=== PATIENT | female | born 2000 | race Caucasian/White ===

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

== ENCOUNTER 2021-08-26 12:25 | Outpatient (CLI) | payer MEDICAID, SELFPAY ==
[2021-08-26] VITALS (17 sets, daily range): BP systolic 134–158; BP diastolic 81–99; PULSE 88–114; RESP 17; BMI 24.2
[2021-08-26 13:58] LABS: Basophils % 0.2 %; Eosinophils % 0.2 %; Hematocrit 32.4 % (37.0-47.0); Hemoglobin 10.5 g/dL (11.5-15.3); Lymphocytes # 1.6 10^3/uL (0.8-4.8); Lymphocytes % 12.5 %; Mean Corpuscular HGB Conc 32.4 g/dL (30.0-36.0); Mean Corpuscular Hemoglobin 27.7 pg (28.0-34.0); Mean Corpuscular Volume 85.5 fl (81-99); Mean Platelet Volume 11.1 fL (7.4-10.4); Monocytes # 0.7 10^3/uL (0.2-0.9); Neutrophils # 10.62 10^3/uL (1.8-7.7); Neutrophils % 81.6 %; Nucleated Red Blood Cells % 0 %; Platelet Count 248 10^3/cmm (130-400); Red Blood Count 3.79 10^6/uL (4.1-5.3); Red Cell Distribution Width 12.6 % (12.1-15.1)
[2021-08-26 14:03] LABS: Add Urine Microscopic? YES; Bilirubin Urine Neg (Negative); Blood Urine Neg (Negative); Glucose Urine UA Norm (Normal); Ketones Urine 1+ (Negative); Leukocyte Esterase Urine Trace (Negative); Nitrate Urine Negative (Negative); Protein Urine Neg (Negative); Specific Gravity, Urine 1.015 (1.005-1.030); Urine Appearance Clear (CLEAR); Urine Color Yellow (Yellow); Urobilinogen Urine Neg (Negative); pH Urine 6 (5-7)
[2021-08-26 14:13] LABS: Add Urine Culture? No; Squamous Epithelial Cell Urine 0-4 /hpf (0-5); WBC Urine 0-4 /hpf (0-5)
[2021-08-26 14:18] LABS: Urine Creatinine 52 mg/dL (28-217); Urine Protein Random 8 mg/dL
[2021-08-26 14:22] LABS: Alanine Aminotransferase 18 U/L (0-33); Albumin Level 3.5 g/dL (3.5-5.2); Alkaline Phosphatase 157 IU/L (35-105); Anion Gap 18.9 (5-19); Aspartate Amino Transferase 18 U/L (0-32); Blood Urea Nitrogen 10 mg/dL (6-20); Calcium 9.7 mg/dL (8.5-10.5); Carbon Dioxide 17 mmol/L (22-29); Chloride 104 mmol/L (98-107); Globulin 2.6 g/dL (1.3-4.6); Glomerular Filtration Rate 201.5 mL/min (90-130); Glucose 75 mg/dL (65-115); Osmolality Calculated 280 mOsm/kg (285-295); Potassium 3.9 mmol/L (3.5-5.1); Sodium 136 mmol/L (136-145); Total Bilirubin 0.2 mg/dL (0.15-1.2); Total Protein 6.1 g/dL (6.6-8.7); Uric Acid 2.5 mg/dL (2.4-5.7)
[2021-08-26 14:24] LABS: UPRO/UCREAT Ratio 0.15 mg/mg CR
== END 2021-08-26 16:22 | disposition home or self-care (01) ==
LOC: OPOB 12:34 → OBGYN 12:35
PROVIDERS: PCP Nurse Practitioner; Visit Provider Family Medicine
DX: O16.9 Unspecified maternal hypertension, unspecified trimester (principal)
CPT/HCPCS: 36415; 59025; 80053; 81001; 82570; 84156; 84550; 85025; 99211

== ENCOUNTER 2021-08-27 07:50 | Outpatient (CLI) | payer MEDICAID, SELFPAY ==
[2021-08-27] VITALS (8 sets, daily range): BP systolic 127–141; BP diastolic 69–100; PULSE 86–106; RESP 17; BMI 25.2
== END 2021-08-27 10:03 | disposition home or self-care (01) ==
LOC: OPOB 07:56 → OBGYN 07:57
PROVIDERS: PCP Nurse Practitioner; Visit Provider Family Medicine
DX: O16.9 Unspecified maternal hypertension, unspecified trimester (principal); Z3A.00 Weeks of gestation of pregnancy not specified; R42 Dizziness and giddiness
CPT/HCPCS: 59025; 99211

== ENCOUNTER 2021-08-27 14:57 | Inpatient (IN) | payer MEDICAID, SELFPAY ==
[2021-08-27] VITALS (24 sets, daily range): BP systolic 118–141; BP diastolic 61–91; PULSE 80–103; RESP 16–17; TEMP 36.4; BMI 25.2
[2021-08-27 15:43] LABS: Basophils % 0.1 %; Eosinophils % 0.2 %; Hematocrit 32.4 % (37.0-47.0); Hemoglobin 10.3 g/dL (11.5-15.3); Lymphocytes # 1.5 10^3/uL (0.8-4.8); Lymphocytes % 10.7 %; Mean Corpuscular HGB Conc 31.8 g/dL (30.0-36.0); Mean Corpuscular Hemoglobin 28.1 pg (28.0-34.0); Mean Corpuscular Volume 88.3 fl (81-99); Mean Platelet Volume 11.3 fL (7.4-10.4); Monocytes # 0.8 10^3/uL (0.2-0.9); Monocytes % 5.8 %; Neutrophils # 11.31 10^3/uL (1.8-7.7); Neutrophils % 82.7 %; Nucleated Red Blood Cells % 0 %; Platelet Count 260 10^3/cmm (130-400); Red Blood Count 3.67 10^6/uL (4.1-5.3); Red Cell Distribution Width 12.9 % (12.1-15.1); White Blood Count 13.7 10^3/uL (4.0-10.0)
[2021-08-27] MEDS: miSOPROStol 100 mcg tablet 25 MCG VAGINAL ×2 (16:17→21:00)
[2021-08-27] MEDS: dextrose 5%-lactated ringers 1,000 ML 125 ML IV (16:56)
[2021-08-27] MEDS: ampicillin 2,000 MG in sodium chloride 0.9% (plus) 50 ML 100 MG IV (17:02)
[2021-08-27 17:18] LABS: Adenovirus Not Detected (NOT DETECT); Chlamydia Pneumoniae Not Detected (NOT DETECT); Coronavirus 229E,HKU1,NL63,OC4 Not Detected (NOT DETECT); Human Metapneumovirus Not Detected (NOT DETECT); Human Rhinovirus/Enterovirus Not Detected (NOT DETECT); Influenza A Not Detected (NOT DETECT); Influenza A H1 Not Detected (NOT DETECT); Influenza A H1-2009 Not Detected (NOT DETECT); Influenza A H3 Not Detected (NOT DETECT); Influenza B Not Detected (NOT DETECT); Mycoplasma Pneumoniae Not Detected (NOT DETECT); Parainfluenza Virus Type 1 Not Detected (NOT DETECT); Parainfluenza Virus Type 2 Not Detected (NOT DETECT); Parainfluenza Virus Type 3 Not Detected (NOT DETECT); Parainfluenza Virus Type 4 Not Detected (NOT DETECT); Respiratory Syncytial Virus A Not Detected (NOT DETECT); Respiratory Syncytial Virus B Not Detected (NOT DETECT); SARS-COV-2 Not Detected (NOT DETECT)
[2021-08-27] MEDS: ampicillin 1,000 MG in sodium chloride 0.9% (plus) 50 ML 100 MG IV (20:58)
[2021-08-27] MEDS: morphine 4 mg/mL SDV 1 mL 8 MG IM (22:30)
[2021-08-27] MEDS: promethazine 25 mg/mL SDV 1 mL IM (22:30)
[2021-08-28] VITALS (175 sets, daily range): BP systolic 111–180; BP diastolic 55–91; PULSE 82–153; RESP 16–20; TEMP 36.4–36.9; O2SAT 86–100
[2021-08-28] MEDS: lactated ringers 1,000 ML 999 ML IV ×3 (00:38→13:09)
[2021-08-28] MEDS: ampicillin 1,000 MG in sodium chloride 0.9% (plus) 50 ML 100 MG IV ×2 (01:03→07:15)
--- NOTE | 2021-08-28 01:40 | ANES.PREANE2 ---
Pre-Anesthetic Assessment Height/Weight: Height 1.65 m Weight 68.946 kg Temp Pulse Resp BP 97.6 F 89 17 144/87 08/27/21 16:18 08/28/21 01:24 08/27/21 22:30 08/28/21 01:24 Preop Diagnosis: labor pain epidural Was Beta Kirk taken within 24 hours: N/A Was Clonidine taken within 24 hours: N/A Social No alcohol and No tobacco Exam alert, oriented x 3, clear to auscultation bilaterally and regular rate & rhythm Airway Submandibular: within normal limits Cervical ROM: within normal limits Mallampati: Class II Dentition: full Pulmonary None reported CV/HEM None reported None reported Hepatic None reported GI Gastroesophageal Reflux Disease (with ) Metabolic None reported Musc/skel None reported Neuropsych Anxiety Anesthetic Plan ASA status: 2 Anesthesia: Regional (specify below) Risk of > 500 ml blood loss (7ml/kg in children): No Medications/Allergies Home Medications Medication Instructions Recorded Confirmed Last Taken Type sertraline 50 mg tablet (Zoloft) 50 mg PO QDAY 30 Days #30 tab 05/05/21 08/27/21 Unknown Rx Allergies Allergy/AdvReac Type Severity Reaction Status Date / Time No Known Allergies Allergy Verified 08/27/21 08:25 Current Medications Generic Name Dose Route Start Last Admin Trade Name Freq PRN Reason Stop Dose Admin Dextrose/Lactated Ringer's 1,000 mls @ 125 mls/hr 08/27/21 15:30 08/28/21 00:38 Dextrose 5%-Lactated Ringers IV Infused .Q8H CAROLA Infusion Ampicillin Sodium 1,000 mg/ 50 mls @ 100 mls/hr 08/27/21 20:30 08/28/21 01:03 Sodium Chloride IV 100 mls/hr Q4H CAROLA Administration Protocol Lactated Ringer's 1,000 mls @ 999 mls/hr 08/28/21 00:39 08/28/21 00:38 Lactated Ringers IV 999 mls/hr .Q1H1M PRN Administration See label comments PFSH Anesthesia Medical History Menorrhagia Situational anxiety Surgical History No pertinent past surgical history Family History Other Diabetes Hypertension Social History Smoking and tobacco status: never smoked Second hand smoke exposure: No Smoking risk assessment/counseling performed?: No Alcohol intake: never Desire information about alcohol rehabilitation?: No Counseling given: No Desire information about substance/drug rehabilitation?: No Counseling given: No Adopted: No Caregiver/support person: No Lives independently: Yes Household members: family Housing: House Marital status: Single Number of children: 0 service: No Current occupational status: student Pets and animals: Yes History of recent travel: No Current gender identity: Female Female Reproductive History Date of last menstrual period: 11/05/19 : 1 Spontaneous abortions: No Data Anesthesia : 08/27/21 15:10 Short CBC 08/27/21 Range/Units 15:10 WBC 13.7 H (4.0-10.0) 10^3/uL Hgb 10.3 L (11.5-15.3) g/dL Hct 32.4 L (37.0-47.0) % MCV 88.3 (81-99) fl Plt Count 260 (130-400) 10^3/cmm Neut % (Auto) 82.7 % Neut # (Auto) 11.31 H (1.8-7.7) 10^3/uL COVID Results 08/27/21 15:10 Coronavirus 229E (PCR) Not detected SARS-CoV-2 (PCR) Not detected Cardiac Studies: No Data to Display
--- NOTE | 2021-08-28 02:08 | P.ANES_ITS ---
Anesthesia Procedures Procedure/Date: 08/28/21 epidural Procedure Narrative: epidural complete, bolus given, epidural pump initiated with SENIOR LEAD DEVELOPER education given, vitals taken during procedure using OBIX system and satisfactory throughout, patient admits to decrease pain, report of procedure to OB RN Epidural: Time Out Performed: Yes Consents Signed: Procedure Consent Consent: requested by attending/covering physician, from patient, risks and benefits reviewed and patient agrees to proceed Lumbar Level: L3-L4 Epidural position: sitting Epidural procedure: sterile prep of area, 1% lidocaine to numb the area (3 mL), 18 g needle, negative for paresthesia passed, neg for paresthesia, test dose given, 1.5% xylocaine 1:200k epi (5 mL), 0.2% Ropivacaine bolus ml (5 mL), placed PCEA, no systemic response, sterile dressing applied, L.U.D. no apparent complications and 0.2% Ropiavacaine @ mls/hr (13 mL/hr)
[2021-08-28] MEDS: dextrose 5%-lactated ringers 1,000 ML 125 ML IV (02:20)
[2021-08-28] MEDS: oxytocin 30 UNIT/500 ML BAG IV (04:15)
--- NOTE | 2021-08-28 07:34 | P.HPUD_ITS ---
Labor & Delivery H&P Update Date of Procedure: August 28, 2021 Date H&P Performed: 08/27/21 Changes to previous documentation: None Admission Diagnosis: 21-year-old 1 at 37 weeks and 2 days. Preop diagnosis: labor pain Planned procedure: Spontaneous vaginal delivery Other information: Yesterday, the patient presented to the hospital due to concerns about an elevated blood pressure. She was found to have blood pressures that were intermittently elevated. They also dropped down below a systolic of 140 as well. She had been in the hospital the night prior and was also noted to have elevated blood pressures initially which slowly trended down below a systolic of 140. I saw my office yesterday and she once again had elevated blood pressures. Given her gestational age of greater than 37 weeks, and having 3 different medical encounters in which she was noted to have elevated blood pressures in all 3, I elected to induce labor. The patient had no other symptoms associated with preeclampsia. Her had otherwise been relatively unremarkable. [facility] type of O- with an antibody screen that was negative. She is GBS positive. Otherwise the remainder of her labs are within normal limits.
--- NOTE | 2021-08-28 10:02 | P.PCNOB_ITS ---
Delivery Note: Date of delivery: August 28, 2021 Pre-delivery diagnoses: 21-year-old 37-week Post-delivery diagnoses: Status post spontaneous vaginal delivery Procedure: Spontaneous vaginal delivery Delivering Physician: Dhaval Freeman Findings: 100 Pre-Delivery Course: The patient presented to the hospital for induction due to gestational hypertension. She was noted to have multiple elevated blood pressures in the office. As result she was brought to the hospital where she was placed on Cytotec, and later placed on Pitocin. She progressed to complete without difficulty. Her was otherwise unremarkable. She had no other signs of preeclampsia. Her blood type was O-. She was GBS positive. Her glucose screen was negative. Rubella status was immune. The remainder of her labs we re within normal limits. Delivery: DELIVERY: The patient progressed to complete without difficulty. She delivered a female with a weight of 6 pounds 1 ounces with Apgars of 7, 9. The baby was delivered from the EVERETT position and placed on the mother's abdomen. The cord was then clamped and cut. There was no nuchal cord. There was no meconium. The placenta and 3 vessel cord were delivered intact shortly thereafter. The perineum and vaginal vault were carefully examined. Minimal lacerations were noted. Both the mother and the baby were in stable condition. Post-Delivery Status: Good A&P Assessment and plan (1) 37 weeks gestation of : Anticipate routine care. Status: Acute (2) Spontaneous vaginal delivery: Status: Acute Coding Level of Care Code Acute Business Programmer for Chg Fwd Diagnoses 37 weeks gestation of Z3A.37 Spontaneous vaginal delivery O80
[2021-08-28] MEDS: benzocaine-menthol 78 gm Canister 1 SPRAY TOPICAL (12:24)
[2021-08-28] MEDS: lanolin oint 7 gm 1 APPLIC TOPICAL (12:24)
--- NOTE | 2021-08-28 12:26 | ANE.PACU2 ---
Inpatient post-anesthesia follow up: Airway intact: Yes Vital signs: Temperature 97.7 F Pulse Rate 120 Respiratory Rate 17 Blood Pressure 144/79 Pulse Oximetry 99 Oxygen Delivery Me thod Room Air Oxygen Flow Rate Fraction of Inspir ed Oxygen Hydration adequate: Yes Nausea and vomiting: No Pain level: 2 Mental status: Baseline
[2021-08-28] MEDS: sertraline 50 mg Tablet PO (13:09)
[2021-08-28 13:53] LABS: Basophils # 0.1 10^3/uL (0.0-0.1); Basophils % 0.2 %; Hematocrit 30.2 % (37.0-47.0); Hemoglobin 9.6 g/dL (11.5-15.3); Lymphocytes # 1.1 10^3/uL (0.8-4.8); Lymphocytes % 3.9 %; Mean Corpuscular HGB Conc 31.8 g/dL (30.0-36.0); Mean Platelet Volume 11.6 fL (7.4-10.4); Monocytes # 1.4 10^3/uL (0.2-0.9); Monocytes % 4.9 %; Neutrophils # 25.82 10^3/uL (1.8-7.7); Neutrophils % 90.4 %; Nucleated Red Blood Cells % 0 %; Platelet Count 255 10^3/cmm (130-400); Red Blood Count 3.43 10^6/uL (4.1-5.3); White Blood Count 28.6 10^3/uL (4.0-10.0)
[2021-08-28] MEDS: ibuprofen 800 mg tablet PO ×2 (15:12→21:01)
[2021-08-28] MEDS: HYDROcodone-acetaminophen 5-325 mg Tablet PO (17:08)
[2021-08-28] MEDS: docusate sodium 100 mg Capsule PO (21:01)
[2021-08-28 22:32] LABS: Hematocrit 24.9 % (37.0-47.0); Hemoglobin 7.9 g/dL (11.5-15.3); Mean Corpuscular HGB Conc 31.7 g/dL (30.0-36.0); Mean Corpuscular Volume 88.3 fl (81-99); Platelet Count 205 10^3/cmm (130-400); Red Blood Count 2.82 10^6/uL (4.1-5.3); Red Cell Distribution Width 12.9 % (12.1-15.1); White Blood Count 21.9 10^3/uL (4.0-10.0)
[2021-08-29 03:54] VITALS: BP 126/80; PULSE 100
[2021-08-29 06:35] LABS: Hematocrit 24.8 % (37.0-47.0); Hemoglobin 7.8 g/dL (11.5-15.3); Mean Corpuscular HGB Conc 31.5 g/dL (30.0-36.0); Mean Corpuscular Hemoglobin 27.9 pg (28.0-34.0); Mean Corpuscular Volume 88.6 fl (81-99); Mean Platelet Volume 11.2 fL (7.4-10.4); Platelet Count 188 10^3/cmm (130-400); Red Cell Distribution Width 13.1 % (12.1-15.1); White Blood Count 19.2 10^3/uL (4.0-10.0)
[2021-08-29] MEDS: ibuprofen 800 mg tablet PO ×2 (10:06→15:16)
[2021-08-29] MEDS: prenatal vitamin Capsule 1 CAP PO (10:06)
[2021-08-29] MEDS: docusate sodium 100 mg Capsule PO (10:06)
[2021-08-29] MEDS: sertraline 50 mg Tablet PO (10:06)
[2021-08-29 10:14] VITALS: BP 139/79; PULSE 106
--- NOTE | 2021-08-29 14:42 | PM.OBGYDC ---
Discharge Providers SHAREPOINT DESIGNER DEVELOPER Date of Admission: 08/27/21 14:57 Date of Discharge: 09/08/21 Attending Provider at Admission: Dhaval Freeman MD Attending Provider at Discharge: Dhaval Freeman MD Primary Care Provider: JO-ANN Bailey Reason for Visit Reason for Visit: Induced Hospital Course Hospital Course The patient presented to the hospital for induction due to gestational hypertension. Her induction was performed with Cytotec Pitocin. She progressed to complete and had an unremarkable delivery of a healthy appearing . Her course was also unremarkable. Information Peripartum Data: Infant Delivery Method: Vaginal Physical Exam Narrative: The patient is alert. She appears comfortable. Her heart has a regular rate and rhythm with no murmurs appreciated. Lungs are clear to auscultation bilaterally. Her fundus is firm and below the umbilicus. Urinary Catheter Management: Lala: Cath Placed During This Visit: yes Reason for Continuing Indwelling Catheter: Required Immobilization for Trauma or Surgery or Anesthesia Urinary Catheter Date of Insertion: 08/28/21 Urinary Catheter Time of Insertion: 02:41 Discharge Data Studies Completed and Pending Pending at discharge Category Date Time Status Antibody Identification Routine Lab 08/27/21 15:10 Results Complete Crossmatch Routine Lab 08/27/21 15:10 Results Retype for Patiets ABO/Rh Routine Lab 08/29/21 13:06 Ordered Rho D Immune Globulin Routine Lab 08/27/21 15:10 Results Type and Screen Routine Lab 08/27/21 15:10 Results Laboratory Results WBC 19.2 10^3/uL (4.0-10.0) H 08/29/21 06:05 RBC 2.80 10^6/uL (4.1-5.3) L 08/29/21 06:05 Hgb 7.8 g/dL (11.5-15.3) L 08/29/21 06:05 Hct 24.8 % (37.0-47.0) L 08/29/21 06:05 MCV 88.6 fl (81-99) 08/29/21 06:05 MCH 27.9 pg (28.0-34.0) L 08/29/21 06:05 MCHC 31.5 g/dL (30.0-36.0) 08/29/21 06:05 RDW 13.1 % (12.1-15.1) 08/29/21 06:05 Plt Count 188 10^3/cmm (130-400) 08/29/21 06:05 MPV 11.2 fL (7.4-10.4) H 08/29/21 06:05 Neut % (Auto) 90.4 % 08/28/21 13:00 Lymph % (Auto) 3.9 % 08/28/21 13:00 [place] % (Auto) 4.9 % 08/28/21 13:00 Eos % (Auto) 0.0 % 08/28/21 13:00 Baso % (Auto) 0.2 % 08/28/21 13:00 Neut # (Auto) 25.82 10^3/uL (1.8-7.7) H 08/28/21 13:00 Lymph # (Auto) 1.1 10^3/uL (0.8-4.8) 08/28/21 13:00 [place] # (Auto) 1.4 10^3/uL (0.2-0.9) H 08/28/21 13:00 Eos # (Auto) 0.0 10^3/uL (0.0-0.8) 08/28/21 13:00 Baso # (Auto) 0.1 10^3/uL (0.0-0.1) 08/28/21 13:00 Nucleated RBC % (auto) 0 % 08/28/21 13:00 Nucleated RBCs # 0.0 /100WBC 08/28/21 13:00 Coronavirus 229E (PCR) Not detected (NOT DETECT) 08/27/21 15:10 SARS-CoV-2 (PCR) Not detected (NOT DETECT) 08/27/21 15:10 Blood Type O Negative 08/27/21 15:10 Rho(D) Type Negative 08/27/21 15:10 Antibody Screen Positive 08/27/21 15:10 Antibody Identification Anti-D 08/27/21 15:10 Screen Negative (Negative) 08/28/21 13:00 Vitals Last Vital Signs Temp 97.5 F L 08/28/21 21:00 Pulse 106 H 08/29/21 10:14 Resp 17 08/28/21 17:30 BP 139/79 08/29/21 10:14 Pulse Ox 98 08/28/21 21:00 Discharge Plan Discharge Patient Disposition: Home Condition: Stable Prescriptions: New ibuprofen 800 mg Tablet 800 mg PO TID Qty: 45 0RF -U 106.5-1 mg Capsule 1 cap PO DAILY Qty: 90 3RF Continued sertraline [Zoloft] 50 mg tablet 50 mg PO QDAY 30 Days Qty: 30 5RF Discharge Orders: Discharge Order (Routine); Ordered 08/29/21 Ordered By: Dhaval Freeman Referrals: Dhaval Freeman MD [Physician] - 10/15/21 11:30 am Discharge Diet: Usual diet Discharge Activity: Limit activity as instructed Patient Instructions: Depression (DC), Bleeding (DC), Preeclampsia and Eclampsia After Delivery (GEN), COVID-19 and (GEN), OB Discharge Report, OB Food/Drug Interaction Guide, OB Care at Home, Opioid Safety, OB Home Care, OB Vaginal Deliveries Discharge Attestations SHAREPOINT DESIGNER DEVELOPER Time Spent in Discharge Care*: less than 30 min Coding Level of Care Code Acute Technology Trainer for Kathg Herbie
[2021-08-29 15:17] VITALS: BP 148/82; PULSE 93
[2021-08-29 15:18] VITALS: BP 148/82; PULSE 93; RESP 16; TEMP 36.3
[2021-08-29 15:55] VITALS: BP 148/82; PULSE 93; RESP 16; TEMP 36.3
== END 2021-08-29 15:55 | disposition home or self-care (01) | DRG 807 ==
PROVIDERS: Admitting Provider Family Medicine; PCP Nurse Practitioner; Visit Provider Family Medicine
DX: O13.4 Gestational [pregnancy-induced] hypertension without significant proteinuria, complicating childbirth (principal); Z37.0 Single live birth; Z3A.37 37 weeks gestation of pregnancy; O99.824 Streptococcus B carrier state complicating childbirth
CPT/HCPCS: 12345; 36415; 36430; 51702; 59409; 85025; 85027; 85460; 86850; 86870; 86900; 87635; 90384; 96372; 96374; J0290; J2270; J2550; J2795

== ENCOUNTER → 2022-06-23 14:17 | Outpatient (BNVA) | payer MEDICAID, SELFPAY | PROVIDERS: PCP Nurse Practitioner; Visit Provider Nurse Practitioner Family | DX: R50.9 Fever, unspecified (principal); J40 Bronchitis, not specified as acute or chronic | CPT/HCPCS: 87400 ==

== ENCOUNTER → 2022-12-09 15:00 | Outpatient (BNVA) | payer MEDICAID, SELFPAY | PROVIDERS: PCP Nurse Practitioner; Visit Provider Nurse Practitioner Family | DX: N39.0 Urinary tract infection, site not specified (principal) | CPT/HCPCS: 81000 ==

== ENCOUNTER → 2023-05-04 16:43 | Outpatient (BNVA) | payer MEDICAID, SELFPAY | PROVIDERS: PCP Nurse Practitioner; Visit Provider Nurse Practitioner Family | DX: R21 Rash and other nonspecific skin eruption (principal) | CPT/HCPCS: 87071; 87880 ==

== ENCOUNTER 2023-05-27 08:24 | Oncology outpatient (recurring) (ONCR) | payer MEDICAID, SELFPAY ==
[2023-05-27 11:38] VITALS: BP 108/63; PULSE 100; RESP 16; TEMP 37.2; O2SAT 95
== END 2023-06-16 23:59 | disposition home or self-care (01) ==
LOC: ONCMED 08:25
PROVIDERS: PCP Nurse Practitioner; Visit Provider Family Medicine
DX: O36.0930 Maternal care for other rhesus isoimmunization, third trimester, not applicable or unspecified (principal); Z67.91 Unspecified blood type, Rh negative
CPT/HCPCS: 36430; 86850; 86900; 90384

== ENCOUNTER 2023-08-16 01:32 | Inpatient (IN) | payer MEDICAID, SELFPAY ==
[2023-08-15 23:50] VITALS: BMI 24.4
[2023-08-15 23:58] VITALS: BP 130/79; PULSE 88
[2023-08-16] VITALS (54 sets, daily range): BP systolic 94–149; BP diastolic 56–86; PULSE 76–117; RESP 16; TEMP 36.2–37.6; O2SAT 95–100
[2023-08-16] MEDS: lactated ringers 1,000 ML 999 ML IV ×2 (00:49→01:50)
[2023-08-16 00:54] LABS: Basophils % 0.2 %; Eosinophils # 0.1 10^3/uL (0.0-0.8); Eosinophils % 0.4 %; Hematocrit 32.8 % (36-47); Lymphocytes # 2.8 10^3/uL (0.8-4.8); Mean Corpuscular HGB Conc 33.2 g/dL (30-55); Mean Corpuscular Hemoglobin 27.9 pg (27-33); Mean Corpuscular Volume 84.1 fl (85-98); Mean Platelet Volume 10.8 fL (7.4-10.4); Monocytes # 0.8 10^3/uL (0.2-0.9); Monocytes % 5.8 %; Neutrophils # 10.18 10^3/uL (1.8-7.7); Neutrophils % 73.1 %; Nucleated Red Blood Cells % 0 %; Platelet Count 217 10^3/cmm (157-399); Red Cell Distribution Width 13.1 % (12.1-15.1); White Blood Count 13.93 10^3/uL (3.29-11.43)
--- NOTE | 2023-08-16 02:11 | P.ANESASSM_ITS ---
Pre-Anesthetic Assessment Height/Weight: Height 1.65 m Weight 66.678 kg Temp Pulse BP Pulse Ox O2 Del Method 97.2 F L 100 132/68 98 Room Air 08/16/23 00:18 08/16/23 02:08 08/16/23 02:08 08/16/23 02:08 08/16/23 01:18 Preop Diagnosis: Labor pain CITLALY Was Beta Kirk taken within 24 hours: N/A Was Clonidine taken within 24 hours: N/A Social No alcohol and No tobacco Exam alert, oriented x 3, clear to auscultation bilaterally and regular rate & rhythm Airway Submandibular: within normal limits Cervical ROM: within normal limits Mallampati: Class II Dentition: full History/ROS No significant history except as noted and No significant complaints Pulmonary None reported CV/HEM None reported None reported Hepatic None reported GI None reported Metabolic None reported Musc/skel None reported Neuropsych None reported Anesthetic Plan ASA status: 2 Anesthesia: Anesthesia Evaluation and Regional (specify below) Other: CITLALY Risk of > 500 ml blood loss (7ml/kg in children): No Medications/Allergies Home Medications Medication Instructions Recorded Confirmed Last Taken Type ibuprofen 800 mg tablet 800 mg PO TID #45 tabs 08/29/21 05/04/23 Unknown Rx multivitamin no.51-ferrous 1 cap PO DAILY #90 caps 08/29/21 05/04/23 Unknown Rx fumarate 106.5 mg-folic acid 1 mg capsule (-U) sertraline 50 mg tablet (Zoloft) 50 mg PO QDAY 30 days #30 tabs 11/01/22 05/04/23 Unknown Rx fluconazole 150 mg tablet 150 mg PO Q3D 2 doses #2 tabs 12/09/22 05/04/23 Unknown Rx (Diflucan) nitrofurantoin 100 mg PO BID #10 caps 12/09/22 05/04/23 Unknown Rx monohydrate/macrocrystals 100 mg capsule (Macrobid) Allergies Allergy/AdvReac Type Severity Reaction Status Date / Time No Known Allergies Allergy Verified 05/04/23 16:11 Current Medications Generic Name Dose Route Start Last Admin Trade Name Freq PRN Reason Stop Dose Admin Lactated Ringer's 1,000 mls @ 999 mls/hr 08/16/23 00:11 08/16/23 01:50 Lactated Ringers IV 999 mls/hr .Q1H1M PRN Administration See label comments PFSH Anesthesia Medical History Menorrhagia Situational anxiety Surgical History No pertinent past surgical history Family History Other Diabetes Hypertension Social History Smoking and tobacco/nicotine status: never used tobacco/nicotine Second hand smoke exposure: No Alcohol intake: never Substance/Drug Use: never Adopted: No Caregiver/support person: No Lives independently: Yes Household members: family Housing: House Marital status: Single Number of children: 0 service: No Current occupational status: student Pets and animals: Yes Do you think of yourself as: Straight/Heterosexual Current gender identity: Female Female Reproductive History : 2 Spontaneous abortions: No Data Anesthesia 08/16/23 00:39 Short CBC 08/16/23 Range/Units 00:39 WBC 13.93 H (3.29-11.43) 10^3/uL Hgb 10.90 L (11.27-16.99) g/dL Hct 32.8 L (36-47) % MCV 84.1 L (85-98) fl Plt Count 217 (157-399) 10^3/cmm Neut % (Auto) 73.1 % Neut # (Auto) 10.18 H (1.8-7.7) 10^3/uL Cardiac Studies: 2 No Data to Display
[2023-08-16] MEDS: ROPivacaine syringe 100 MG/50 ML SYRINGE 10 MG EPIDURAL (02:15)
--- NOTE | 2023-08-16 02:15 | ANES.PROC ---
Anesthesia Procedures Procedure/Date: 08/16/23 Epidural: Time Out Performed: Yes Consents Signed: Procedure Consent Consent: requested by attending/covering physician, from patient, risks and benefits reviewed and patient agrees to proceed Lumbar Level: L3-L4 Epidural position: sitting Epidural procedure: sterile prep of area, 1% lidocaine to numb the area, 18 g needle, neg for paresthesia, test dose given, 1.5% xylocaine 1:200k epi, 0.2% Ropivacaine bolus ml (4cc and Fentanyl 100 mcg), no systemic response, sterile dressing applied, L.U.D. no apparent complications and 0.2% Ropiavacaine @ mls/hr (10cc/hour. Pt tolerated well)
[2023-08-16] MEDS: dextrose 5%-lactated ringers 1,000 ML 125 ML IV (03:05)
--- NOTE | 2023-08-16 05:04 | PM.OPHPUD ---
Labor & Delivery H&P Update Date of Procedure: August 16, 2023 Date H&P Performed: 08/15/23 Changes to previous documentation: The patient arrived at 6 cm dilated with active contractions Admission Diagnosis: 23-year-old 2 para 1-0-0-1 at 37 weeks estimated stational age presenting in active labor Preop diagnosis: Labor pain Planned procedure: Spontaneous vaginal delivery Other information: The patient has had an unremarkable . Her due date was based on a last menstrual period. Her lab work was unremarkable. Her blood type was O-. She received her RhoGAM shot. Her antibody screen was negative. Her rubella status is immune. Her Pap test was within normal limits. She passed her glucose screen. She was GBS negative. The remainder of her infectious disease profile was within normal limits. There were no concerns throughout her . Related Problem List Diagnoses (1) 37 weeks gestation of : A&P Assessment and plan (1) 37 weeks gestation of : We anticipate a routine labor and delivery process. Depending on the baby's blood type, she will receive RhoGAM. Status: Acute
--- NOTE | 2023-08-16 05:17 | PM.DELIVERY ---
Delivery Note: Date of delivery: August 16, 2023 Pre-delivery diagnoses: 23-year-old 2 para 1-0-0-1 at 37 weeks estimated gestational age presenting in active labor Post-delivery diagnoses: Status post spontaneous vaginal delivery Procedure: Spontaneous vaginal delivery Delivering Physician: Dhaval Freeman Estimated blood loss (mL): 50 Pre-Delivery Course: The patient presented to the hospital complaining of contractions and leaking fluid. She was noted to be 6 cm dilated. An epidural was placed. She then progressed to complete without difficulty. Delivery: DELIVERY: The patient progressed to complete without difficulty. She delivered a male with a weight of 6 pounds 1 ounces with Apgars of 9, 9. The baby was delivered from the RICHI position and placed on the mother's abdomen. The cord was then clamped and cut. There was no nuchal cord. There was no meconium. The placenta and 3 vessel cord were delivered intact shortly thereafter. The perineum and vaginal vault were carefully examined. A superficial posterior midline vaginal laceration was noted which was not bleeding and did not require repair. Both the mother and the baby were in stable condition. Post-Delivery Status: Good A&P Assessment and plan (1) 37 weeks gestation of : I anticipate routine care. (2) Spontaneous vaginal delivery: Coding Level of Care Code Acute Code for Chg Fwd Diagnoses 37 weeks gestation of Z3A.37 Spontaneous vaginal delivery O80
[2023-08-16] MEDS: prenatal vitamin Capsule 1 CAP PO (08:52)
[2023-08-16] MEDS: ibuprofen 800 mg tablet PO ×3 (08:52→19:25)
[2023-08-16] MEDS: docusate sodium 100 mg Capsule PO ×2 (08:53→19:25)
[2023-08-16 19:59] LABS: Hematocrit 32.7 % (36-47); Mean Corpuscular HGB Conc 32.1 g/dL (30-55); Mean Corpuscular Hemoglobin 27.6 pg (27-33); Mean Corpuscular Volume 86.1 fl (85-98); Mean Platelet Volume 11.1 fL (7.4-10.4); Platelet Count 208 10^3/cmm (157-399); Red Cell Distribution Width 13.2 % (12.1-15.1); White Blood Count 13.99 10^3/uL (3.29-11.43)
--- NOTE | 2023-08-16 21:05 | PM.OBGYDC ---
Discharge Providers VULCANIZING MACHINE OPERATOR Date of Admission: 08/16/23 01:32 Date of Discharge: 08/22/23 Attending Provider at Admission: Dhaval Freeman MD Attending Provider at Discharge: Dhaval Freeman MD Primary Care Provider: JO-ANN Bailey Diagnoses at Discharge Discharge Diagnosis (1) 37 weeks gestation of : Status: Resolved (2) Spontaneous vaginal delivery: Status: Resolved Reason for Visit Reason for Visit: contractions, possible [facility] Hospital Course Hospital Course The patient presented to the hospital in active labor. An epidural was placed. She progressed to complete without difficulty. She had an unremarkable delivery of a healthy appearing male infant. She only had superficial vaginal wall tears. Her bleeding was within normal limits. Her course was also unremarkable. Her bleeding was within normal limits. She breast-fed well. Her pain was well-controlled. Physical Exam Narrative: The patient is alert. She appears comfortable. Her heart has a regular rate and rhythm with no murmurs appreciated. Lungs are clear to auscultation bilaterally. Her fundus is firm and below the umbilicus. Urinary Catheter Management: Lala: Cath Placed During This Visit: yes, but has since been removed by the nurse Reason for Continuing Indwelling Catheter: Decision to DC Catheter Urinary Catheter Date of Insertion: 08/16/23 Urinary Catheter Time of Insertion: 03:03 Date Urinary Catheter Removed: 08/16/23 Time Urinary Catheter Discontinued: 04:46 Discharge Data Studies Completed and Pending Pending at discharge Category Date Time Status Complete Crossmatch Routine Lab 08/16/23 00:39 Results Rho D Immune Globulin Routine Lab 08/16/23 00:39 Results Type and Screen Routine Lab 08/16/23 00:39 Results Laboratory Results WBC 13.99 10^3/uL (3.29-11.43) H 08/16/23 19:43 RBC 3.80 10^6/uL (3.85-5.65) L 08/16/23 19:43 Hgb 10.50 g/dL (11.27-16.99) L 08/16/23 19:43 Hct 32.7 % (36-47) L 08/16/23 19:43 MCV 86.1 fl (85-98) 08/16/23 19:43 MCH 27.6 pg (27-33) 08/16/23 19:43 MCHC 32.1 g/dL (30-55) 08/16/23 19:43 RDW 13.2 % (12.1-15.1) 08/16/23 19:43 Plt Count 208 10^3/cmm (157-399) 08/16/23 19:43 MPV 11.1 fL (7.4-10.4) H 08/16/23 19:43 Neut % (Auto) 73.1 % 08/16/23 00:39 Lymph % (Auto) 20.0 % 08/16/23 00:39 [place] % (Auto) 5.8 % 08/16/23 00:39 Eos % (Auto) 0.4 % 08/16/23 00:39 Baso % (Auto) 0.2 % 08/16/23 00:39 Neut # (Auto) 10.18 10^3/uL (1.8-7.7) H 08/16/23 00:39 Lymph # (Auto) 2.8 10^3/uL (0.8-4.8) 08/16/23 00:39 [place] # (Auto) 0.8 10^3/uL (0.2-0.9) 08/16/23 00:39 Eos # (Auto) 0.1 10^3/uL (0.0-0.8) 08/16/23 00:39 Baso # (Auto) 0.0 10^3/uL (0.0-0.1) 08/16/23 00:39 Nucleated RBC % (auto) 0 % 08/16/23 00:39 Nucleated RBCs # 0.0 /100WBC 08/16/23 00:39 Blood Type O Negative 08/16/23 00:39 Rho(D) Type Negative 08/16/23 00:39 Antibody Screen Negative 08/16/23 00:39 Screen Negative (Negative) 08/16/23 19:43 Vitals Last Vital Signs Temp 99.7 F H 08/16/23 15:36 Pulse 76 08/16/23 15:36 BP 119/72 08/16/23 15:36 Pulse Ox 97 08/16/23 15:36 O2 Del Method Room Air 08/16/23 08:45 Results Labs OB ([facility]): Obstetrics US 06/06/23 Blood Type O Negative 08/16/23 Antibody Screen Negative 08/16/23 Hct 32.7 % (36-47) L 08/16/23 Hgb 10.50 g/dL (11.27-16.99) L 08/16/23 Rho(D) Type Negative 08/16/23 Plt Count 208 10^3/cmm (157-399) 08/16/23 Uric Acid 2.5 mg/dL (2.4-5.7) 08/26/21 Discharge Plan Discharge Patient Disposition: Home Condition: Stable Prescriptions: New ibuprofen 800 mg Tablet 800 mg PO TID Qty: 45 0RF Continued sertraline [Zoloft] 50 mg tablet 50 mg PO QDAY 30 Days Qty: 30 5RF -U 106.5-1 mg Capsule 1 cap PO DAILY Qty: 90 3RF Discontinued fluconazole [Diflucan] 150 mg tablet 150 mg PO Q3D Qty: 2 0RF Rx Instructions: may repeat second dose 72 hrs after first dose if symptoms persist nitrofurantoin monohyd/m-cryst [Macrobid] 100 mg capsule 100 mg PO BID Qty: 10 0RF Rx Instructions: must administer with a meal/food ibuprofen 800 mg Tablet 800 mg PO TID Qty: 45 0RF Discharge Orders: Discharge Order (Routine); Ordered 08/17/23 Ordered By: Dhaval Freeman Referrals: Michael Jacques MD [Physician] - 09/15/23 1:30 pm (for laparoscopic tubal) Dhaval Freeman MD [Physician] - 09/22/23 1:20 pm Discharge Diet: Usual diet Discharge Activity: Limit activity as instructed Patient Instructions: Depression (DC), Perineal Care (DC), Expression, Collection and Storage of Breast Milk (DC), and Nipple Soreness (DC), and Breast Engorgement (DC), and Plugged Ducts (DC), How to Increase Your Milk Supply (DC), and Your Diet (DC), Bleeding (DC), Tubal Ligation (DC), OB Care at Home, Opioid Safety, Abnormal Bleeding Activity Restrictions/Additional Instructions: Discharge Attestations VULCANIZING MACHINE OPERATOR Time Spent in Discharge Care*: less than 30 min Coding Level of Care Code Acute Code for Chg Fwd Diagnoses 37 weeks gestation of Z3A.37 Spontaneous vaginal delivery O80
[2023-08-16] MEDS: acetaminophen 325 mg Tablet 650 MG PO (23:39)
[2023-08-17] MEDS: HYDROcodone-acetaminophen 5-325 mg Tablet PO (02:22)
[2023-08-17 04:30] VITALS: BP 121/73; PULSE 78; RESP 16; TEMP 36.5; O2SAT 100
--- NOTE | 2023-08-17 08:00 | ANE.PACU2 ---
Inpatient post-anesthesia follow up: Airway intact: Yes Vital signs: Temperature 97.9 F Pulse Rate 86 Respiratory Rate 16 Blood Pressure 130/72 Pulse Oximetry 98 Oxygen Delivery Me thod Room Air Oxygen Flow Rate Fraction of Inspir ed Oxygen Hydration adequate: Yes Nausea and vomiting: No Pain level: 1 Mental status: Baseline Epidural Start/End: Epidural Start Date: 08/16/23 Epidural Start Time: 02:00 Epidural End Date: 08/16/23 Epidural End Time: 05:17
[2023-08-17] MEDS: ibuprofen 800 mg tablet PO (08:12)
[2023-08-17] MEDS: prenatal vitamin Capsule 1 CAP PO (08:12)
[2023-08-17] MEDS: docusate sodium 100 mg Capsule PO (08:12)
[2023-08-17 10:20] VITALS: BP 130/72; PULSE 86; RESP 16; TEMP 36.6; O2SAT 98
== END 2023-08-17 10:20 | disposition home or self-care (01) | DRG 807 ==
LOC: OPOB 01:32 → OBGYN 01:32
PROVIDERS: Admitting Provider Family Medicine; PCP Nurse Practitioner; Visit Provider Family Medicine
DX: O80 Encounter for full-term uncomplicated delivery (principal); Z37.0 Single live birth; Z3A.37 37 weeks gestation of pregnancy
CPT/HCPCS: 36415; 51702; 59025; 83986; 85025; 85027; 85460; 86850; 86900; 90384; 96374; 98960; 99211; J2795; J3010; J7120; J7121

== ENCOUNTER 2023-12-13 10:04 | Day surgery (SDC) | payer MEDICAID, SELFPAY ==
--- NOTE | 2023-12-05 08:24 | P.ANESASSM_ITS ---
Pre-Anesthetic Assessment Height/Weight: Height 1.65 m Operation Date: 12/13/23 11:45 Proposed Procedures p Laparoscopic Salpingectomy 61871, Z30.2(Bilateral) - Michael Jacques MD Familial anesthetic complications: none Was Beta Kirk taken within 24 hours: N/A Was Clonidine taken within 24 hours: N/A Social No alcohol and No tobacco Exam alert, oriented x 3, clear to auscultation bilaterally and regular rate & rhythm Airway Submandibular: within normal limits Cervical ROM: within normal limits Mallampati: Class II Dentition: full Neuropsych Anxiety and Depression Anesthetic Plan ASA status: 2 Anesthesia: General Medications/Allergies Home Medications Medication Instructions Recorded Confirmed Last Taken Type sertraline 50 mg tablet (Zoloft) 50 mg PO QDAY 30 days #30 tabs 11/01/22 12/05/23 12/05/23 Rx ibuprofen 800 mg tablet 800 mg PO TID #45 tabs 08/16/23 12/05/23 Unknown Rx Allergies Allergy/AdvReac Type Severity Reaction Status Date / Time No Known Allergies Allergy Verified 12/05/23 08:00 [facility] Anesthesia Medical History Menorrhagia Situational anxiety Surgical History No pertinent past surgical history Family History Other Diabetes Hypertension Social History Smoking and tobacco/nicotine status: never used tobacco/nicotine Second hand smoke exposure: No Alcohol intake: never Substance/Drug Use: never Adopted: No Caregiver/support person: No Lives independently: Yes Household members: family Housing: House Marital status: Single Number of children: 0 service: No Current occupational status: student Pets and animals: Yes Do you think of yourself as: Straight/Heterosexual Current gender identity: Female Female Reproductive History Date of last menstrual period: 11/21/23 Spontaneous abortions: No Data Anesthesia Cardiac Studies: No Data to Display
[2023-12-13] VITALS (11 sets, daily range): BP systolic 121–140; BP diastolic 70–85; PULSE 70–86; RESP 16–24; TEMP 36.5–36.7; O2SAT 98–100; BMI 21.6
[2023-12-13 10:39] LABS: OR HCG Qualitative Urine Negative (Negative); Specific Gravity, Urine 1.015 (1.005-1.030); Urine Appearance Clear (CLEAR); Urine Color Yellow (Yellow); pH Urine 6 (5-7)
--- NOTE | 2023-12-13 10:39 | P.ANESUD_ITS ---
Pre-Anesthetic Update Pre-Anesthetic Assessment: Date of Surgery/Procedure: 12/13/23 Preop Myrna gnosis: Desire permanent sterilization Proposed Procedure: Operation Date: 12/13/23 11:45 Proposed Procedures p Laparoscopic Salpingectomy 35418, Z30.2(Bilateral) - Michael Jacques MD Any changes to Pre-Anesthetic Assessment?: No Last Intake: Intake Last Liquid Date 12/12/23 Last Liquid Time 19:00 Last Solid Date 12/12/23 Last Solid Time 16:00 Vitals: Temperature 97.8 F 12/13/23 10:24 Temperature Source Temporal Artery S can 12/13/23 10:24 Pulse Rate 73 12/13/23 10:24 Respiratory Rate 18 12/13/23 10:24 Blood Pressure 122/70 12/13/23 10:24 Blood Pressure [place] n 87 12/13/23 10:24 Pulse Oximetry 99 12/13/23 10:24 Oxygen Delivery Me thod Room Air 12/13/23 10:29 Exam: Pre-Anes Outpt Exam: alert, oriented x 3, clear to auscultation bilaterally and regular rate & rhythm Cardiac Studies: No Data to Display
[2023-12-13 10:40] LABS: Add Urine Microscopic? YES; Bilirubin Urine Neg (Negative); Blood Urine 3+ (Negative); Glucose Urine UA Norm (Normal); Ketones Urine Negative (Negative); Leukocyte Esterase Urine Negative (Negative); Nitrate Urine Negative (Negative); Protein Urine Neg (Negative); Urobilinogen Urine Norm (Negative)
[2023-12-13 10:50] LABS: Basophils % 0.4 %; Eosinophils # 0.1 10^3/uL (0.0-0.8); Hematocrit 39.8 % (36-47); Lymphocytes % 39.4 %; Mean Corpuscular HGB Conc 31.9 g/dL (30-55); Mean Corpuscular Hemoglobin 25.7 pg (27-33); Mean Corpuscular Volume 80.6 fl (85-98); Mean Platelet Volume 10.5 fL (7.4-10.4); Monocytes # 0.4 10^3/uL (0.2-0.9); Neutrophils % 52.2 %; Nucleated Red Blood Cells % 0 %; Platelet Count 276 10^3/cmm (157-399); Red Blood Count 4.94 10^6/uL (3.85-5.65); Red Cell Distribution Width 14.6 % (12.1-15.1); White Blood Count 4.98 10^3/uL (3.29-11.43)
[2023-12-13] MEDS: sodium chloride 0.9% 500 ML IV (10:52)
[2023-12-13] MEDS: sodium chloride 0.9% 1,000 ML 30 ML IV (10:57)
[2023-12-13] MEDS: ceFAZolin 2,000 MG in sodium chloride 0.9% (plus) 50 ML 100 MG IV (11:02)
[2023-12-13 11:04] LABS: Add Urine Culture? No; RBC Urine 0-4 /hpf (0-2)
[2023-12-13 11:14] LABS: Alanine Aminotransferase 20 U/L (0-33); Albumin Level 4.2 g/dL (3.5-5.2); Alkaline Phosphatase 97 U/L (35-105); Aspartate Amino Transferase 18 U/L (0-32); Blood Urea Nitrogen 17 mg/dL (6-20); Carbon Dioxide 23 mmol/L (22-29); Chloride 107 mmol/L (98-107); Globulin 3.1 g/dL (1.3-4.6); Glomerular Filtration Rate 123.9 mL/min (90-130); Glucose 91 mg/dL (65-115); Osmolality Calculated 291 mOsm/kg (285-295); Sodium 140 mmol/L (136-145); Total Bilirubin 0.4 mg/dL (0.15-1.2); Total Protein 7.3 g/dL (6.6-8.7)
[2023-12-13 11:31] LABS: Anion Gap 14.3 (5-19); Potassium 4.3 mmol/L (3.5-5.1)
[2023-12-13] MEDS: scopolamine 1.5 Patch 1 PATCH TRANSDERMA (11:38)
--- NOTE | 2023-12-13 12:03 | W.PM.OPSUD ---
Surgery/Procedure H&P Update DATE OF PROCEDURE: December 13, 2023 DATE H&P PERFORMED: 12/05/23 H&P UPDATE INFORMATION: I have reviewed H&P completed within last 30 days, I have examined patient prior to procedure and No changes to prior documentation PREOP DIAGNOSIS: Desire permanent sterilization PLANNED PROCEDURE: Operation Date: 12/13/23 11:45 Proposed Procedures p Laparoscopic Salpingectomy 59465, Z30.2(Bilateral) - Michael Jacques MD
[2023-12-13 12:49] LABS: Bacteria Urine TRACE /hpf; Mucus Urine 3+ /hpf
[2023-12-13] MEDS: BUPivacaine 0.5% INJ 10 mL INJECTION (12:50)
--- NOTE | 2023-12-13 12:56 | PM.OP ---
Operative Report Date of procedure: December 13, 2023 Pre-op diagnosis: Desires permanent sterilization Post-op diagnosis: same Procedure done: Laparoscopic bilateral salpingectomy Lysis of adhesions Specimens removed/disposition: Left the right fallopian tube Surgeon: Michael Jacques MD Estimated blood loss (mL): 5 IV fluids (mL): 800 Urine output (mL): 50 Complications: None Procedure: After informed consent, the patient was taken to the operating room where general anesthesia was administered. She was placed in the dorsal lithotomy position and prepped and draped in sterile fashion. Pre-Procedure Time-Out verifying the correct patient identity, correct procedure verified with consent, correct site and side, correct patient position, availability of correct implants and any special equipment or requirements was performed and acknowledge by the OR team. The patient was examined under anesthesia and found to have a normal uterus with normal adnexa. A weighted speculum was placed in the vagina, and the anterior lip of cervix was grasped with the single toothed tenaculum. A uterine manipulator was advanced into the endocervical canal and uterus. The tenaculum was removed after uterine manipulator was secured. The speculum was removed from the vagina. An intraumbilical incision was made with a scalpel. While tenting up on the abdomen, a Verres needle was admitted into the intra-abdominal cavity. A saline drop test was performed and noted to be within normal limits. Pneumoperitoneum was attained with 4 liters of carbon dioxide. The Verres needle was removed. A 5 mm Opitc view trocar and sleeve were admitted into the abdomen and laparoscopic confirmation of location was achieved. A second incision was made 3 cm above the symphysis pubis, and a 5 mm trocar sleeves were admitted into the abdomen under direct laparoscopic visualization without complication. A survey revealed normal abdominal anatomy. A 5 mm blunt probe was advanced through the second trocar sleeve, and light manipulation of ovaries and uterus to assess the posterior aspects was performed. The pelvic survey shows normal uterus, left and right adnexa. Omental adhesions noted to left mesosalpinx. The adhesion was fulgurated and transected with good hemostasis with the Ligasure. The patient was placed into Trendelenburg position. The fallopian tubes were inspected bilaterally and the fimbriated ends of the fallopian tubes were visualized bilaterally. Attention was then directed to the right side. The fallopian tube and mesosalpinx were grasped and the underlying mesosalpinx was cauterized and cut using the Ligasure device. Serial cauterization and cutting was used to separate the fallopian tube from the underlying mesosalpinx until it could be amputated cutting it approximated 2 cm from the cornua. Attention was then turned to the contralateral fallopian tube, which was removed in similar fashion. Both specimens were removed through the trocar and sent to pathology. The instruments were removed. The suprapubic trocar port was removed under direct visualization insuring good hemostasis. The carbon dioxide was allowed to escape from the abdomen. The intraumbilical trocar sleeve was withdrawn under visualization with laparoscope in the sleeve to insure hemostasis. The skin incisions were closed with 3-O Monocryl subcuticular stich and Dermabond. The instruments were removed from the vagina, and excellent hemostasis was noted. The patient tolerated the procedure well, and sponge, lap and needle count were correct times two. The patient was taken to the recovery room in good condition.
[2023-12-13] MEDS: HYDROcodone-acetaminophen 5-325 mg Tablet 1 TAB PO (14:01)
--- NOTE | 2023-12-13 14:35 | ANE.PACU2 ---
Inpatient post-anesthesia follow up: Airway intact: Yes Vital signs: Temperature 98 F Pulse Rate 82 Respiratory Rate 18 Blood Pressure 132/76 Pulse Oximetry 98 Oxygen Delivery Me thod Room Air Oxygen Flow Rate Fraction of Inspir ed Oxygen Hydration adequate: Yes Nausea and vomiting: No Pain level: 1 Mental status: Baseline
--- NOTE | 2023-12-13 14:45 | PC.NURSE ---
lomas catheter removed at approximately 1420 without complaint or complication, 100 ml of clear yellow urine present in bag
== END 2023-12-13 14:35 | disposition home or self-care (01) ==
PROVIDERS: PCP Family Medicine; Visit Provider Obstetrics & Gynecology
PROC: (CPT 58661; principal; 2023-12-13 11:35)
DX: Z30.2 Encounter for sterilization (principal); N73.6 Female pelvic peritoneal adhesions (postinfective)
CPT/HCPCS: 58661; 36415; 80053; 81001; 81025; 85025; 86850; 86900; 88302; J0690; J1100; J1885; J2250; J2405; J2704; J2710; J3010; J3490; J7030; J7040